=== PATIENT | female | born 1995 | race Caucasian/White ===

== ENCOUNTER 2019-09-27 16:17 | Emergency (ER) | payer OTHER ==
[2019-09-27 16:40] VITALS: BMI 35.6
--- NOTE | 2019-09-27 18:26 | PDOC ---
History of Present Illness - General Chief Complaint: Chest Pain Stated Complaint: DIFFICULTY BREATHING/CHEST PAIN Time Seen by Provider: 09/27/19 17:07 History Source: Patient Exam Limitations: No Limitations - History of Present Illness Initial Comments: 09/27/19 18:14 Patient is a 24 year old female with h/o asthma last attack was 2017, no intubation c/o right sided chest pain. 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 She developed some chest pain which states is a pressure pain 6/10, constant radiates to the back, which is worse with taking a deep breath and movement of the arm, no alleviating factors but took nothing for the the pain. Denies fever, chills, nausea, vomiting,cough, sob, tachycardia. She has an IUD - Camille. No recent travel. FamHX: neg for CVA/MN/DVT/PE. PMHX: as above PSOCHX: (+) cig 3/days, neg etoh, neg drug FamHX: Noncontributory ALL: NKDA GENERAL/CONSTITUTIONAL: [No fever or chills. No weakness. No weight change.] HEAD, EYES, EARS, NOSE AND THROAT: [No change in vision. No ear pain or discharge. No sore throat.] CARDIOVASCULAR: [(+) chest pain (-) shortness of breath.] RESPIRATORY: [No cough, wheezing, or hemoptysis.] GASTROINTESTINAL: [No nausea, vomiting, diarrhea or constipation. No rectal bleeding.] GENITOURINARY: [No dysuria, frequency, or change in urination.] MUSCULOSKELETAL: [No joint or muscle swelling or pain. No neck or back pain.] SKIN AND BREASTS: [No rash or easy bruising.] NEUROLOGIC: [No headache, vertigo, loss of consciousness, or loss of sensation.] PSYCHIATRIC: [No depression or anxiety.] ENDOCRINE: [No increased thirst. No abnormal weight change.] HEMATOLOGIC/LYMPHATIC: [No anemia, easy bleeding, or history of blood clots.] ALLERGIC/IMMUNOLOGIC: [No hives or skin allergy. No latex allergy.] GENERAL: [The patient is awake, alert, and fully oriented, in no acute distress.] HEAD: [Normal with no signs of trauma.] EYES: [Pupils equal, round and reactive to light, extraocular movements intact, sclera anicteric, conjunctiva clear.] ENT: [Ears normal, nares patent, oropharynx clear without exudates. Moist mucous membranes.] NECK: [Normal range of motion, supple without lymphadenopathy, JVD, or masses.] LUNGS: [Breath sounds equal, clear to auscultation bilaterally. No wheezes, and no crackles., tenderness to the chest wall] HEART: [Regular rate and rhythm, normal S1 and S2 without murmur, rub.] ABDOMEN: [Soft, nontender, normoactive bowel sounds. No guarding, no rebound. No masses.] EXTREMITIES: [Normal range of motion, no edema. No clubbing or cyanosis. No cords, erythema, or tenderness.] NEUROLOGICAL: [Cranial nerves II through XII grossly intact. Normal speech, n ormal gait.] PSYCH: [Normal mood, normal affect.] SKIN: [Warm, Dry, normal turgor, no rashes or lesions noted.] Past History - Past Medical History Allergies/Adverse Reactions: Allergies Allergy/AdvReac Type Severity Reaction Status Date / Time No Known Allergies Allergy Verified 07/02/16 12:03 Home Medications: Ambulatory Orders NK [No Known Home Medication] 07/02/16 COPD: No - Immunization History Immunization Up to Date: Yes (no flu 2015) - Psycho Social/Smoking Cessation Hx Smoking History: Current every day smoker Have you smoked in the past 12 months: No Information on smoking cessation initiated: Yes Hx Alcohol Use: No Drug/Substance Use Hx: No Substance Use Type: None *Physical Exam - Vital Signs Last Vital Signs Temp Pulse Resp BP Pulse Ox 68 18 113/54 L 100 09/27/19 20:54 09/27/19 20:54 09/27/19 20:54 09/27/19 20:54 ED Treatment Course - LABORATORY CBC & Chemistry Diagram: 09/27/19 19:19 09/27/19 19:19 - ADDITIONAL ORDERS Additional order review: Laboratory Results 09/27/19 09/27/19 09/27/19 20:00 19:19 19:19 PT with INR INR D-Dimer 328 Sodium 141 Potassium 4.0 Chloride 103 Carbon Dioxide 29 Anion Gap 9 BUN 12.7 Creatinine 0.8 Est GFR (CKD-EPI)AfAm 118.76 Est GFR (CKD-EPI)NonAf 102.47 Random Glucose 90 Calcium 9.3 Total Bilirubin < 0.1 L AST 24 ALT 25 Alkaline Phosphatase 77 Creatine Kinase 144 Troponin I < 0.02 Total Protein 7.2 Albumin 3.5 Serum , Qual Negative 09/27/19 19:19 PT with INR 12.30 INR 1.04 D-Dimer Sodium Potassium Chloride Carbon Dioxide Anion Gap BUN Creatinine Est GFR (CKD-EPI)AfAm Est GFR (CKD-EPI)NonAf Random Glucose Calcium Total Bilirubin AST ALT Alkaline Phosphatase Creatine Kinase Troponin I Total Protein Albumin Serum , Qual 09/27/19 19:19 RBC 4.21 MCV 88.6 MCHC 33.3 RDW 14.0 MPV 9.2 Neutrophils % 64.5 Lymphocytes % 27.3 Monocytes % 5.6 Eosinophils % 2.1 Basophils % 0.5 - RADIOLOGY Radiology Studies Ordered: Category Date Time Status CHEST PA & LAT [RAD] Stat Radiology 09/27/19 18:30 Taken - Medications Given in the ED: ED Medications Discontinued Medications Generic Name Dose Route Start Last Admin Trade Name Freq PRN Reason Stop Dose Admin Ketorolac Tromethamine 30 mg 09/27/19 18:30 09/27/19 19:22 Toradol Injection - IVPUSH 09/27/19 18:31 30 mg ONCE ONE Administration Medical Decision Making - Medical Decision Making 09/27/19 18:14 Patient is a 24 year old female with h/o asthma last attack was 2017, no intubation c/o right sided chest pain. 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 She developed some chest pain which states is a pressure pain 6/10, constant radiates to the back, which is worse with taking a deep breath and movement of the arm, no alleviating factors but took nothing for the the pain. Denies fever, chills, nausea, vomiting,cough, sob, tachycardia. She has an IUD - Camille. No recent travel. FamHX: neg for CVA/MN/DVT/PE. Paitent has reproducible chest pain, but has IUD (+) smoker will get labs incl d-dimer, cxr toradol reasses 09/27/19 20:39 EKG: SR at 71, normal axis deviation, no ST-T wave changes, artifacts Labs reviewed d-dimer is negative. 09/27/19 21:40 Temperature is 97.6 Selected Entries 09/27/19 20:54 Pulse Rate [ 68 Right Radial] Respiratory 18 Rate Blood Pressure 113/54 L [Left Arm] O2 Sat by Pulse 100 Oximetry (%) I discussed the physical exam findings, ancillary test results and final diagn oses with the patient. I answered all of the patient's questions. The patient was satisfied with the care received and felt comfortable with the discharge plan and treatment plan. The Patient agrees to follow up with the primary care physician within 24-72 hours. Discharge - Discharge Information Problems reviewed: Yes Clinical Impression/Diagnosis: Chest pain Qualifiers: Chest pain type: unspecified Qualified Code(s): R07.9 - Chest pain, unspecified Condition: Stable Disposition: HOME - Follow up/Referral - Patient Discharge Instructions Patient Printed Discharge Instructions: DI for Atypical Chest Pain Additional Instructions: Your Discharge Instructions: You must call primary care physician within 24 hours to arrange follow-up. Return to the Emergency Department with any new, persistent or worsening symptoms, for fever, chills, SOB, dizziness or any other concerning changes that may occur. - Post Discharge Activity Work/Back to School Note: Back to Work
[2019-09-27] MEDS ORDERED: KETOROLAC TROMETHAMINE 30 MG/1 ML VIAL IVPUSH ONE (18:30)
[2019-09-27] MEDS ORDERED: KETOROLAC TROMETHAMINE 30 MG/1 ML VIAL ONE (18:58)
[2019-09-27 19:58] LABS: BASO % 0.5 % (0-2.0); EOS % 2.1 % (0-4.5); HEMATOCRIT 37.3 % (32.4-45.2); HEMOGLOBIN 12.4 GM/dL (10.7-15.3); LYMPH % 27.3 % (8-40); MCH 29.5 pg (25.7-33.7); MCHC 33.3 g/dl (32.0-36.0); MEAN CELL VOLUME 88.6 fl (80-96); MEAN PLT VOLUME 9.2 fl (7.5-11.1); MONO % 5.6 % (3.8-10.2); NEUT % 64.5 % (42.8-82.8); PLATELET COUNT 340 K/MM3 (134-434); RBC 4.21 M/mm3 (3.60-5.2); WHITE BLOOD COUNT 9.8 K/mm3 (4.0-10.0)
[2019-09-27 20:04] LABS: INR 1.04 (0.83-1.09); PROTHROMBIN TIME (PATIENT) 12.3 SEC (9.7-13.0)
[2019-09-27 20:42] LABS: ALBUMIN 3.5 g/dl (3.4-5.0); ALK PHOS 77 U/L (45-117); ANION GAP 9 MMOL/L (8-16); BILIRUBIN,TOTAL < 0.1 mg/dL (0.2-1); BLOOD UREA NITROGEN 12.7 mg/dL (7-18); CALCIUM 9.3 mg/dL (8.5-10.1); CHLORIDE 103 mmol/L (98-107); CO2 29 mmol/L (21-32); CREATININE 0.8 mg/dL (0.55-1.3); GLUCOSE,RANDOM 90 mg/dL (74-106); SGOT/AST 24 U/L (15-37); SGPT/ALT 25 U/L (13-61); SODIUM 141 mmol/L (136-145); TOT PROT 7.2 g/dl (6.4-8.2)
[2019-09-27 20:56] VITALS: BP 113/54; PULSE 68
--- NOTE | 2019-09-28 10:28 | EKG ---
Test Reason : Blood Pressure : / mmHG Vent. Rate : 071 BPM Atrial Rate : 071 BPM P-R Int : 164 ms QRS Dur : 068 ms QT Int : 396 ms P-R-T Axes : 049 022 025 degrees QTc Int : 430 ms POOR DATA QUALITY, INTERPRETATION MAY BE ADVERSELY AFFECTED SINUS RHYTHM WITH PREMATURE VENTRICULAR COMPLEXES OR FUSION COMPLEXES POSSIBLE LEFT ATRIAL ENLARGEMENT BORDERLINE ECG NO PREVIOUS ECGS AVAILABLE Confirmed by ESTEPHANIE SINCLAIR, MEAGAN ([id number]) on 09/28/2019 10:28:23 AM Referred By: Confirmed By:MEAGAN HUMMEL MD
== END 2019-09-27 22:13 | disposition home or self-care (01) ==
LOC: JER 16:17
PROC: 3E0333Z Introduction of Anti-inflammatory into Peripheral Vein, Percutaneous Approach (ICD-10-PCS; principal; 2019-09-27)
DX: R07.9 Chest pain, unspecified (principal); F17.210 Nicotine dependence, cigarettes, uncomplicated
CPT/HCPCS: 36415; 71046-TC-FY; 80053; 82550; 84484; 84703; 85025; 85379; 85610; 93005; 93010; 99285-25

== ENCOUNTER 2020-09-10 02:11 | Emergency (ER) | payer OTHER ==
[2020-09-10 02:23] VITALS: BP 135/80; PULSE 78; TEMP 98.9; BMI 36.6
[2020-09-10] MEDS ORDERED: IBUPROFEN 600 MG TABLET (FP) PO ONE ×2 (02:44→02:45)
== END 2020-09-10 03:23 | disposition home or self-care (01) ==
LOC: FER 02:11
DX: S93.601A Unspecified sprain of right foot, initial encounter (principal); Y99.9 Unspecified external cause status
CPT/HCPCS: 73630-TC-RT-FY; 99283-25

== ENCOUNTER 2020-11-07 17:34 | Emergency (ER) | payer OTHER ==
[2020-11-07 17:50] VITALS: BP 132/75; PULSE 81; TEMP 98.2; BMI 35.5
== END 2020-11-07 18:05 | disposition home or self-care (01) ==
LOC: FER 17:34
DX: J02.0 Streptococcal pharyngitis (principal)
CPT/HCPCS: 99283-25

== ENCOUNTER 2021-11-18 11:03 | Emergency (ER) | payer OTHER ==
[2021-11-18 11:14] VITALS: BP 135/79; PULSE 73; TEMP 98.2; BMI 33.3
[2021-11-18 14:03] LABS: INFLU A MOLECULAR Negative (Negative); INFLU B MOLECULAR Negative (Negative)
[2021-11-19 16:09] LABS: SARS-CoV-2 NAA Detected (Not Detected)
== END 2021-11-18 14:43 | disposition home or self-care (01) ==
LOC: JER 11:03
DX: J06.9 Acute upper respiratory infection, unspecified (principal)
CPT/HCPCS: 71045-TC-FY; 87502; 99284-25; C9803-CS; U0003; U0005

== ENCOUNTER 2022-10-14 11:38 | Emergency (ER) | payer OTHER ==
[2022-10-14 11:58] VITALS: BP 133/76; PULSE 91; RESP 16; TEMP 98.5; BMI 46.5
[2022-10-14 12:07] LABS: HCG,QUALITATIVE URINE Negative
[2022-10-14] MEDS ORDERED: KETOROLAC TROMETHAMINE 15 MG/ML VIAL IVPUSH ONE (12:29)
[2022-10-14 12:51] LABS: EPITHELIAL CELLS FEW /hpf
[2022-10-14] MEDS ORDERED: KETOROLAC TROMETHAMINE 15 MG/ML VIAL ONE (12:51)
[2022-10-14] MEDS ORDERED: KETOROLAC TROMETHAMINE 15 MG/ML VIAL IM ONE (13:14)
[2022-10-14 13:40] LABS: ALBUMIN 3.5 g/dl (3.4-5.0); BILIRUBIN,TOTAL 0.6 mg/dl (0.2-1); CALCIUM 8.9 mg/dl (8.5-10); CREATININE 0.6 mg/dl (0.55-1.3)
[2022-10-14 13:57] LABS: BASO % 0.3 % (0-2.0); HEMATOCRIT 38.8 % (32.4-45.2); HEMOGLOBIN 12.7 GM/dL (10.7-15.3); LYMPH % 25.9 % (8-40); MCH 28.3 pg (25.7-33.7); MCHC 32.9 g/dl (32.0-36.0); MEAN PLT VOLUME 9.2 fl (7.5-11.1); MONO % 5.6 % (3.8-10.2); NEUT % 67.2 % (42.8-82.8); PLATELET COUNT 357 10^3/uL (134-434); RBC 4.51 M/mm3 (3.60-5.2); RDW 14.3 % (11.6-15.6); WHITE BLOOD COUNT 10.8 K/mm3 (4.0-10.0)
== END 2022-10-14 15:10 | disposition home or self-care (01) ==
LOC: FER 11:38
PROC: 3E0233Z Introduction of Anti-inflammatory into Muscle, Percutaneous Approach (ICD-10-PCS; principal; 2022-10-14)
DX: N83.291 Other ovarian cyst, right side (principal)
CPT/HCPCS: 36415; 76830-TC; 80053; 81003; 81015; 84703; 85025; 87086; 87491; 87591; 99284-25